=== PATIENT | female | born 1985 | race Caucasian/White ===

== ENCOUNTER 2017-06-21 05:08 | Day surgery (SDC) | payer OTHER ==
[2017-06-15 13:40] VITALS: BMI 36.3
[2017-06-21] MEDS ORDERED: BUPIVACAINE HCL/PF 0.5% (5MG/ML) 10 ML VIAL ONE (07:40)
--- NOTE | 2017-06-21 08:03 | HP ---
Past Medical History - Primary Care Physician PCP:: Anthony Perdomo - Admission Chief Complaint: admission for sterlization History of Present Illness: 31 yo f requesting tubal ligation, awarerisks of BTL, procedure is permenant and has small failure risks and risks of ectopic , risks of surgery also has discussed with patient, ulternatives explained History Source: Patient Limitations to Obtaining History: No Limitations - Past Medical History ...: 4 ...Para: 4 Additional OB History: 4 - Past Surgical History Hx Myomectomy: No Hx Transabdominal Cerclage: No - Smoking History Smoking history: Never smoked Have you smoked in the past 12 months: No - Alcohol/Substance Use Hx Alcohol Use: No - Social History Usual Living Arrangement: Yes: With Spouse History of Recent Travel: No Home Medications - Allergies Allergies/Adverse Reactions: Allergies Allergy/AdvReac Type Severity Reaction Status Date / Time No Known Allergies Allergy Verified 06/15/17 13:34 - Home Medications Home Medications: Ambulatory Orders NK [No Known Home Medication] 06/15/17 Review of Systems - Review of Systems Constitutional: reports: No Symptoms Eyes: reports: No Symptoms HENT: reports: No Symptoms Neck: reports: No Symptoms Cardiovascular: reports: No Symptoms Respiratory: reports: No Symptoms Gastrointestinal: reports: No Symptoms Genitourinary: reports: No Symptoms Breasts: reports: No Symptoms Reported Musculoskeletal: reports: No Symptoms Integumentary: reports: No Symptoms Neurological: reports: No Symptoms Endocrine: reports: No Symptoms Hematology/Lymphatic: reports: No Symptoms Psychiatric: reports: No Symptoms Physical Exam-[employer] Constitutional: Yes: Well Nourished, No Distress, Calm Eyes: Yes: WNL, Conjunctiva Clear, EOM Intact HENT: Yes: WNL, Atraumatic, Normocephalic Neck: Yes: WNL, Supple, Trachea Midline Cardiovascular: Yes: WNL, Regular Rate and Rhythm Respiratory: Yes: WNL, Regular, CTA Bilaterally Gastrointestinal: Yes: WNL ...Rectal Exam: Yes: WNL Renal/: Yes: WNL Pelvis: Yes: WNL External Genitalia: Yes: Normal Vaginal Exam: Yes: Normal Cervix: Yes: Normal Uterus: Yes: Normal Adnexa: Not Palpable: Left, Right Breast(s): Yes: WNL Musculoskeletal: Yes: WNL Extremities: Yes: WNL Edema: No Integumentary: Yes: WNL Neurological: Yes: WNL, Alert, Oriented ...Motor Strength: WNL Psychiatric: Yes: WNL, Alert, Oriented Problem List - Problem (1) Admission for sterilization Code(s): Z30.2 - ENCOUNTER FOR STERILIZATION Assessment/Plan laparoscopic bilateral tubal fulguration. rba discussed
[2017-06-21] MEDS ORDERED: DESFLURANE GAS 240 ML BOTTLE IH ONE (09:05)
[2017-06-21] MEDS ORDERED: ROCURONIUM BROMIDE 50 MG/5 ML VIAL ONE (09:08)
[2017-06-21] MEDS ORDERED: PROPOFOL 20 ML ONE ×2 (09:08)
[2017-06-21] MEDS ORDERED: SUCCINYLCHOLINE CHLORIDE 200 MG/10 ML VIAL ONE (09:08)
[2017-06-21] MEDS ORDERED: MIDAZOLAM HCL 2 MG/2 ML SINGLE DOSE VIAL ONE (09:09)
[2017-06-21] MEDS ORDERED: KETOROLAC TROMETHAMINE 30 MG/1 ML VIAL ONE (09:34)
[2017-06-21] MEDS ORDERED: DEXAMETHASONE SOD PHOSPHATE 4 MG/1 ML VIAL ONE (09:38)
[2017-06-21] MEDS ORDERED: GLYCOPYRROLATE 0.2 MG/1 ML VIAL ONE (09:45)
[2017-06-21] MEDS ORDERED: NEOSTIGMINE METHYLSULFATE 0.5 MG/ML - 10 ML MDV ONE (09:46)
[2017-06-21] MEDS ORDERED: oxyCODONE HCL 5 MG TABLET PO PRN (10:08)
[2017-06-21] MEDS ORDERED: IBUPROFEN 600 MG TABLET (FP) PO PRN (10:08)
[2017-06-21] MEDS ORDERED: IBUPROFEN 800 MG/8 ML IJ IVPB PRN (10:08)
[2017-06-21] MEDS ORDERED: ONDANSETRON 4 MG/2 ML VIAL IVPUSH PRN (10:08)
[2017-06-21] MEDS ORDERED: ELECTROLYTE-148 SOLN 1,000 ML IV SCH (10:15)
[2017-06-21] MEDS ORDERED: ACETAMINOPHEN 1000 MG/100 ML VIAL (NON FORMULARY) IVPB PRN (10:24)
[2017-06-21] MEDS ORDERED: LACTATED RINGERS SOLUTION 1,000 ML IV SCH (10:30)
[2017-06-21] MEDS ORDERED: ACETAMINOPHEN 1000 MG/100 ML VIAL (NON FORMULARY) IVPB ONE (11:44)
[2017-06-21] MEDS ORDERED: oxyCODONE HCL 5 MG TABLET ONE (13:00)
[2017-06-21 14:13] VITALS: BP 116/75; PULSE 94; TEMP 98
--- NOTE | 2017-06-21 15:44 | OP ---
DATE OF OPERATION: 06/21/2017 PREOPERATIVE DIAGNOSIS: Voluntary sterilization. POSTOPERATIVE DIAGNOSIS: Voluntary sterilization. PROCEDURE: Laparoscopic bilateral tubal fulguration. SURGEON: Anthony Perdomo M.D. ANESTHESIA: General. ANESTHESIOLOGIST: Mounika Tinoco M.D. ESTIMATED BLOOD LOSS: 5 mL. DESCRIPTION OF PROCEDURE: Patient was taken to operating room under adequate general anesthesia and laced in dorsal lithotomy position. Examination under anesthesia revealed the external genitalia to be normal. Vagina was normal. Cervix was clean, no gross lesion. Uterus normal size. Adnexa, no masses palpable. The IUD string was seen protruding through the cervical os, which was grasped with a Renea clamp and removed easily in its entirety. Then Hulka was introduced into intrauterine cavity for manipulation, and then Boles was inserted. In dorsal lithotomy position, a small infraumbilical skin incision was made, Veress needle was introduced, pneumoperitoneum established. A 5-mm trocar was inserted through the direct vision, and then the scope was introduced, and then 5-mm trocar was introduced through the suprapubic area. Visualization of upper abdomen shows to be normal. Both tubes and ovaries, cul-de-sac were normal. Uterus was normal size. Bladder was normal. Then bipolar cautery was introduced, and the right tube was grasped with bipolar cautery, right tube was cauterized in 3 portions, 2 cm apart. The same procedure repeated for opposite tube. Visualization of both tubes shows adequate cauterization, and then instruments were withdrawn. Suprapubic and infraumbilical skin incisions were closed with 3-0 Biosyn interrupted suture. Patient tolerated procedure well and left the OR in good condition. ANTHONY PERDOMO M.D. [id number]
--- NOTE | 2017-06-22 12:53 | PATH ---
Surgical Pathology Report Patient Name: ION SIERRA Med. Rec. #: [id number] /Age/Gender: 1985 (Age: 31) / F Account: [id number] Location: [facility] SURGICAL Taken: 06/21/2017 Received: 06/21/2017 Reported: 06/22/2017 Physicians: Anthony Perdomo M.D. Specimen(s) Received IUD Clinical History Voluntary sterilization Final Diagnosis INTRAUTERINE DEVICE (IUD), REMOVAL: INTRAUTERINE DEVICE. MACROSCOPIC DIAGNOSIS. Electronically Signed Candace Aguirre M.D. Gross Description Received fresh labeled "IUD," is a 3.5 cm in length T-shaped device, consistent with an intrauterine device. No soft tissue is present. No sections are submitted, gross only. /06/21/2017 [facility]06/21/2017
== END 2017-06-21 14:15 | disposition home or self-care (01) ==
LOC: JASU-SURG 05:08
PROVIDERS: ATTEND Obstetrics & Gynecology
PROC: 0U574ZZ Destruction of Bilateral Fallopian Tubes, Percutaneous Endoscopic Approach (ICD-10-PCS; principal; 2017-06-21 09:00)
DX: Z30.2 Encounter for sterilization (principal)
CPT/HCPCS: 84703; 88300-TC; 94760; J0131

== ENCOUNTER → 2018-01-30 | Day surgery (SDC) | payer OTHER ==
--- NOTE | 2018-02-01 11:40 | PATH ---
Surgical Pathology Report Patient Name: ION SIERRA Med. Rec. #: [id number] /Age/Gender: 1985 (Age: 32) / F Account: [id number] [facility] Taken: 01/30/2018 Received: 01/30/2018 Reported: 02/01/2018 Physicians: Papito De Santiago Specimen(s) Received RIGHT BREAST 9:00 0.43CM Clinical History 0.4 cm solid mass Final Diagnosis BREAST, RIGHT, 9:00, ULTRASOUND GUIDED CORE BIOPSY: PAPILLARY LESION. SEE COMMENT. Comment: Immunohistochemical stains performed and interpreted at [facility] for P63 and smooth muscle myosin heavy chain (SMM-HC) utilized to evaluate this case. Complete excision of the lesion is recommended for histologic evaluation and definitive classification. Electronically Signed Candace Aguirre M.D. Gross Description Received in formalin labeled "right 9:00" are 4 chan-yellow, cylindrical portions of fibroadipose tissue ranging from 0.3-1.2 cm in length and averaging 0.1 cm diameter. The specimens are submitted in toto in one cassette. Total formalin fixation time: Between 9-10 hours. KARIE/01/30/2018 [place]/01/30/2018
== END | disposition home or self-care (01) ==
LOC: JRADUS-SUR 08:13
PROVIDERS: ATTEND Nurse Practitioner Family
PROC: 0HBT3ZX Excision of Right Breast, Percutaneous Approach, Diagnostic (ICD-10-PCS; principal; 2018-01-30)
DX: D48.61 Neoplasm of uncertain behavior of right breast (principal)
CPT/HCPCS: 19083; 87899; 88305-TC; 88341-TC; 88342-TC; A4648

== ENCOUNTER 2018-04-07 08:26 | Day surgery (SDC) | payer OTHER ==
[2018-04-06 13:12] VITALS: BMI 36.3
[2018-04-07] MEDS ORDERED: LIDOCAINE HCL 1%, 10 MG/ML (20ML VIAL) ONE (11:22)
[2018-04-07] MEDS ORDERED: MIDAZOLAM HCL 2 MG/2 ML SINGLE DOSE VIAL ONE (11:25)
[2018-04-07] MEDS ORDERED: oxyCODONE HCL 5 MG TABLET PO ONE (11:40)
[2018-04-07] MEDS ORDERED: PROPOFOL 20 ML ONE ×2 (11:40→11:58)
[2018-04-07] MEDS ORDERED: SODIUM CHLORIDE 0.9% P/F 10 ML VIAL IJ ONE (11:41)
[2018-04-07] MEDS ORDERED: ceFAZolin SODIUM 1 GM VIAL ONE (11:41)
[2018-04-07] MEDS ORDERED: LIDOCAINE HCL/PF 2% SDV 5ML VIAL ONE (11:45)
[2018-04-07] MEDS ORDERED: ceFAZolin SODIUM 1 GM VIAL IVPB ONE (11:48)
[2018-04-07] MEDS ORDERED: LIDOCAINE HCL 1%, 10 MG/ML (20ML VIAL) NR ONE (12:05)
[2018-04-07] MEDS ORDERED: ONDANSETRON 4 MG/2 ML VIAL IVPUSH PRN ×2 (12:37→16:33)
[2018-04-07] MEDS ORDERED: PROMETHAZINE HCL 25 MG/1 ML VIAL IVPUSH PRN (12:37)
[2018-04-07] MEDS ORDERED: LACTATED RINGERS SOLUTION 1,000 ML IV SCH (12:45)
--- NOTE | 2018-04-07 13:43 | OP ---
DATE OF OPERATION: 04/07/2018 PREOPERATIVE DIAGNOSIS: Right breast intraductal papilloma. POSTOPERATIVE DIAGNOSIS: Right breast intraductal papilloma. PROCEDURE: Right breast wire localized excision. SURGEON: Dariela Dawson M.D. ANESTHESIA: Local IV sedation. ESTIMATED BLOOD LOSS: Minimal. COMPLICATIONS: None. This was a sterile procedure. INDICATIONS FOR PROCEDURE: Patient presented with a screening mammogram and ultrasound and had a right breast ultrasound-guided needle biopsy of a lesion within the duct. Pathology shows intraductal papilloma in the right 9 o'clock retroareolar location. Recommendation was excision. The procedure was discussed with her questions answered. PROCEDURE IN DETAIL: Patient was brought to [facility] in [place]. Taken to the breast imaging where a wire was used to localize the clip in the outer right breast. She was then brought to the operating room and after IV sedation, IV antibiotics; the right breast was prepped and draped in the usual sterile fashion. The area in the outer and retroareolar of the right breast was anesthetized with 1% lidocaine without epinephrine. A radial incision was made in the right 7 o'clock location. A wire was used as a guide to get down to the area of interest. It was excised en bloc and sent specimen radiograph. Hemostasis assured with electrocautery. The parenchyma approximated with interrupted 2-0 Vicryl. Skin approximated with interrupted 2-0 Vicryl and running 4-0 Biosyn. A sterile dressing with Tegaderm, 4 x 4's applied. Specimen radiograph showed the clip and wire to be intact within the specimen. This was then sent to Pathology for permanent section. DARIELA DAWSON M.D. [id number]
[2018-04-07] MEDS ORDERED: oxyCODONE HCL 5 MG TABLET ONE (14:28)
[2018-04-07 14:55] VITALS: BP 126/72; PULSE 80; TEMP 98.4
[2018-04-07] MEDS ORDERED: oxyCODONE HCL 5 MG TABLET PO PRN ×2 (16:33)
--- NOTE | 2018-04-12 11:47 | PATH ---
Surgical Pathology Report Patient Name: ION SIERRA [facility]. Rec. #: [id number] /Age/Gender: 1985 (Age: 32) / F Account: [id number] Location: [facility] SURGICAL Taken: 04/07/2018 Received: 04/07/2018 Reported: 04/12/2018 Physicians: Dariela Segura M.D. Specimen(s) Received RIGHT BREAST MASS EXCISION Clinical History Nonpalpable lesion Final Diagnosis RIGHT BREAST, EXCISION: BREAST TISSUE WITH SCLEROSING INTRADUCTAL PAPILLOMA AND STROMAL FIBROSIS. REACTIVE CHANGES AT PRIOR BIOPSY SITE IDENTIFIED. Comment: Immunohistochemical stains (on block 4) performed and interpreted at [facility] show the following results: smooth muscle myosin heavy chain and p63 highlight the myoepithelial cell layer in the areas of sclerosis. Electronically Signed Sadny Dawkins M.D. Gross Description Received fresh on an AccuGrid, labeled "right breast excision," is a 4.5 x 3.4 x 1.3 cm. chan-yellow, irregular, portion of fibroadipose tissue with a needle localization wire present. The specimen is unoriented. There is no skin or nipple present. The specimen is inked blue and serially sectioned. Sectioning reveals 0.6 x 0.5 x 0.4 cm chan, indurated nodule at 0.3 cm to the closest radial margin. The remaining breast parenchyma displays diffuse dense white fibrous tissue. The specimen is entirely and sequentially submitted in 7 cassettes with the nodule in cassette 5. Total formalin fixation time: Approximately 6 hours 04/07/201804/07/2018
== END 2018-04-07 15:30 | disposition home or self-care (01) ==
LOC: JASU-SURG 08:26 → EDSTATUS 09:30 → JASU-SURG 15:30
PROVIDERS: ATTEND Surgery
PROC: 0HBT0ZX Excision of Right Breast, Open Approach, Diagnostic (ICD-10-PCS; principal; 2018-04-07 11:00)
DX: D24.1 Benign neoplasm of right breast (principal)
CPT/HCPCS: 19281; 84703; 88307-TC; 88342-TC; 94760